=== PATIENT | male | born 1970 | race Caucasian/White ===

== ENCOUNTER → 2017-08-03 | Day surgery (SDC) | payer BC ==
[~2017-08-03] VITALS: Ht 177.8 cm; Wt 97.0 kg
[~2017-08-03] MED LIST: AMPICILLIN/SULBAC 3 GM/NS 100 ML IV SCH; ASPI81TA23 PO; CHLO25TA2 PO; CHLORHEXIDINE GLUCONATE 2 % 1 PACK (2 CLOTHS) TOPICAL PRN; DIOV160T6 PO; FAMOTIDINE 20 MG/2 ML VIAL ONE; FLUT1SPR5 EACH NARE; HUMIBIDDM PO; HYDROmorphone HCL PF 2 MG/ML VIAL ONE; LACTATED RINGER'S 1000 ML IV PRN; LIDOCAINE 1%/EPINEPHrine 1:100,000 SOLN 20 ML VIAL ONE; METOPROLOL TARTRATE 25 MG TAB PO PRN; MIDAZOLAM HCL 2 MG/2 ML VIAL ONE; MORPHINE SULFATE 4 MG/ML INJ ONE; ONDANSETRON HCL 4 MG/2 ML VIAL ONE; OXYMETAZOLINE HCL 0.05% 15 ML NASAL SPRAY ONE; POVIDONE IODINE 5% (ANTISEPSIS KIT) 4 APPLICATIONS EACH NARE PRN; PROMETHAZINE INJ 25 MG/ML VIAL ONE; SODIUM CHLORID 0.9% 500 ML IV PRN
[2017-08-03 11:50] VITALS: PULSE 93; TEMP 97.4
[2017-08-03 14:45] VITALS: BP 125/84; PULSE 90; RESP 16; O2SAT 96
--- NOTE | 2017-08-04 12:06 | MP ---
cc: Pepe Rangel MD DATE OF OPERATION: 08/03/2017 SURGEON: Pepe Rangel MD PREOPERATIVE DIAGNOSES: 1. Chronic pansinusitis. 2. Nasal airway obstruction. 3. Nasal septal deviation. 4. Hypertrophy of inferior turbinates. POSTOPERATIVE DIAGNOSES: 1. Chronic pansinusitis. 2. Nasal airway obstruction. 3. Nasal septal deviation. 4. Hypertrophy of inferior turbinates. OPERATION PERFORMED: 1. Open repair, nasal septal fracture. 2. Bilateral submucosal resection of inferior turbinates. 3. Bilateral endoscopic total ethmoidectomy. 4. Bilateral endoscopic maxillary antrostomy with debridement of maxillary sinus tissue. 5. Bilateral endoscopic exploration of frontal sinus duct with balloon sinuplasty. INDICATIONS: Documented in the history and physical. DESCRIPTION OF OPERATION: The patient was taken to OR #2 and placed in the supine position. Following induction of general anesthesia and intubation, the nose was packed bilaterally with cotton pledgets saturated in 0.05% oxymetazoline. Nasal septal mucosa and the inferior turbinates were injected with a total of 12 mL of 1% Xylocaine with epinephrine 1:100,000. He was then prepped and draped for surgery. Nasal packing was removed and a hemitransfixion incision was made in the left nasal vestibule. Through this incision, the mucosa of the septum was elevated bilaterally as far as the junction of the bony and cartilaginous septum. This exposed the quadrangular cartilage, which showed evidence of old fracture with numerous comminuted fragments extending into the airways bilaterally, primarily to the left side. A cumulative area of 2 x 2.5 cm was removed using a caudal elevator and Wenden-Burt forceps. This was done preserving 1.5 cm dorsal and caudal cartilaginous struts. When this was completed, the mucosa was elevated from the bony septum and the maxillary crest, and these were removed using Placido-Burt forceps on the bony septum with a 6 mm Juju chisel on the maxillary crest. The incision was then closed with a running suture of 4-0 chromic and the mucosal layers of septum were approximated to each other with a quilting stitch of 4-0 plain gut. Inferior turbinates were then fractured out medially and stab incisions were opened along their inferior surfaces. Through these incisions, the submucosal soft tissue was reduced using a curette and preserving the conchal bone. The incision was then cauterized using the suction Bovie at 35 milton and the remnants of the inferior turbinates were relateralized to the lateral nasal wall. The remainder of the operation was completed using endoscopic visualization with a 0 degree scope. Additional injections of lidocaine and epinephrine in the remainder of the attachment to the middle turbinates and on the left side, also into the uncinate processes, into the ethmoid cells themselves. The left side was addressed first, beginning with amputation of the middle turbinate using through cutting Blakesley forceps and the power microdebrider. This was followed by uncinectomy and exenteration of the anterior and posterior cells using blunt and power dissection. Middle turbinate and ethmoid contents were included in the specimen labeled left sinus contents. When this was completed, the maxillary ostium was enlarged using the through cutting Blakesley forceps and the power debrider, and the cavity was debrided of purulent mucoid material and inflamed mucosa. This side was then irrigated and was packed with cotton pledgets saturated in oxymetazoline, which remained in place while the right side was operated in the same fashion, beginning with the amputation of the middle turbinate. On this side, the uncinate process was preserved, but sinusotomies were opened into the anterior and posterior cells, and bone and soft tissue were removed from this area, included in the specimen labeled right sinus contents along with the middle turbinate. When this was completed, the maxillary ostium was enlarged and the same method was used on the left side, and the cavity was debrided of inflamed tissue and mucopurulent material. This right side was then also packed with cotton pledgets saturated in oxymetazoline. These remained in place while the balloon dilation of the frontal ducts was completed. This was done using the Acclarent technique. The guidewire was advanced into the left frontal duct and sinus. The balloon was then advanced into the duct and was inflated at 3 levels to a pressure of 12 atmospheres. The most inferior level was at the junction with the anterior ethmoid cells. The balloon was then removed and using a 70-degree scope, a curved suction and upbiting forceps, fragments of bone and soft tissue were removed from the frontal duct. It was verified patent all the way into the frontal sinus. The right side was then operated in the same fashion with the same findings. The dissection was then completed. Packing was removed from the nose and sinuses. The superonasal vault and sinus cavities were then filled with Stammberger sinus foam. The inferior vault was filled with a cellulose packing, which was then saturated with the 1% lidocaine and epinephrine solution. Procedure was then terminated, and patient was reversed from anesthesia and taken to recovery in good condition. There were no complications. BLOOD LOSS: 150 mL MD ZAYNAB Hensley/GRANT , 11:07 AM , 12:06 PM
== END | disposition home or self-care (01) ==
LOC: PHSDC 08:52
PROVIDERS: ATTEND Otolaryngology
DX: J32.4 Chronic pansinusitis (principal); J34.2 Deviated nasal septum; R09.81 Nasal congestion; H69.83 Other specified disorders of Eustachian tube, bilateral
CPT/HCPCS: 00160; 21336; 30140; 31255; 31267; 31296; 88305; 88311; J0295; J1170; J2250; J2270; J2405; J2550; J3010; J7120